=== PATIENT | female | born 1960 | race Caucasian/White ===

== ENCOUNTER → 2016-09-10 | Outpatient (CLI) | payer OTHER, BC ==
[~2016-09-10] MED LIST: IBUP-103 PO; MULTTAB58 PO
--- NOTE | 2016-09-10 11:23 | DIAGNOSTIC IMAGING REPORT ---
RIGHT ANKLE 3 VIEWS HISTORY: Right ankle pain. COMPARISON: None. FINDINGS: There is no fracture or dislocation. Lateral soft tissue swelling. Tiny plantar heel spur. IMPRESSION: No fractures. Electronically signed by: Mark Mendiola M.D. 09/10/2016 11:21 AM Dictated Date/Time: 09/10/2016 11:20 AM
== END | disposition home or self-care (01) ==
LOC: C.RAD1850 10:08
PROVIDERS: ATTEND Nurse Practitioner Adult Health
DX: M25.571 Pain in right ankle and joints of right foot (principal); M77.31 Calcaneal spur, right foot